=== PATIENT | female | born 1960 | race Caucasian/White ===

== ENCOUNTER → 2016-03-22 | Outpatient (CLI) | payer BC ==
[~2016-03-22] MED LIST: MULTIPLE VITAMI1 TA3 PO; SIMVASTATIN10 MG PO; VITAMIN D-32000 UNI1 PO
--- NOTE | ~2016-03-22 | ST ---
[place], [place] EXERCISE STRESS TEST REPORT NAME: DIANE DUKES [facility] #: [id number] UNIT #: [id number] ROOM: DOCTOR: DEN GAMA,ABRAHAN BIRTHDATE: [birth year] DOS: 03/22/2016 REFERRING PHYSICIAN: Dr. Cely Jain. REASON FOR TEST: Evaluation of chest pain. PHYSICAL EXAMINATION NECK: Supple. LUNGS: Clear anteriorly. HEART: Regular rhythm. PROTOCOL: Izaiah protocol. Total stress time 6 minutes. Maximum heart rate of 153, which is 93% of targeted heart rate. Total mets 7.2 mets. Peak blood pressure 176/50, adequate response. SYMPTOMS: The patient is chest pain free. EKG: Resting EKG showed sinus rhythm. Stress EKG showed no ischemia, no arrhythmias. POST-STRESS COMPLICATIONS: None. ABRAHAN CRENSHAW MD CM:STRESS:EXERCISE STRESS TEST REPORT [id number] ABRAHAN CRENSHAW MD
== END | disposition home or self-care (01) ==
LOC: CARD 03-15 10:30
DX: R07.2 Precordial pain (principal)

== ENCOUNTER 2016-12-30 14:58 | Emergency (ER) | payer OTHER ==
[~2016-12-30] VITALS: Ht 167.6 cm; Wt 90.7 kg
== END 2016-12-30 16:34 | disposition home or self-care (01) ==
LOC: ED 14:58
DX: S80.02XA Contusion of left knee, initial encounter (principal); S80.12XA Contusion of left lower leg, initial encounter; Z79.899 Other long term (current) drug therapy; W01.0XXA Fall on same level from slipping, tripping and stumbling without subsequent striking against object, initial encounter; Y93.89 Activity, other specified; Y92.89 Other specified places as the place of occurrence of the external cause; Y99.9 Unspecified external cause status

== ENCOUNTER → 2018-02-21 | Outpatient (CLI) | payer BC | END | disposition home or self-care (01) | LOC: CARD 07:28 | DX: I34.0 Nonrheumatic mitral (valve) insufficiency (principal); R01.1 Cardiac murmur, unspecified ==

== ENCOUNTER → 2020-09-08 | Outpatient (CLI) | payer BC | END | disposition home or self-care (01) | LOC: CARD 09-01 15:00 | PROVIDERS: ATTEND Physician Assistant | DX: I34.0 Nonrheumatic mitral (valve) insufficiency (principal); I10 Essential (primary) hypertension; E78.2 Mixed hyperlipidemia ==

== ENCOUNTER 2022-06-09 09:39 | Emergency (ER) | payer OTHER ==
[~2022-06-09] VITALS: Wt 95.3 kg
== END 2022-06-09 10:02 | disposition home or self-care (01) ==
LOC: ED 09:39
DX: S80.11XA Contusion of right lower leg, initial encounter (principal); E78.00 Pure hypercholesterolemia, unspecified; Z98.890 Other specified postprocedural states; W22.8XXA Striking against or struck by other objects, initial encounter; Y93.89 Activity, other specified; Y92.89 Other specified places as the place of occurrence of the external cause; Y99.8 Other external cause status

== ENCOUNTER → 2024-10-16 | Outpatient (CLI) | payer MEDICARE ==
[~2024-10-16] MED LIST changes: +AMIODARONE HCL400 MG PO; +AMIODARONE HYD200 MG PO; +ATENOLOL25 MG PO; +DILTIAZEM HCL120 M2 PO; +LASIX40 MG PO; +LOPRESSOR25 MG PO; +POTASSIUM CHLO10 ME4 PO; +TRAMADOL HCL50 MG PO; +XARE20MG PO
== END | disposition home or self-care (01) ==
LOC: RAD 01:22
PROVIDERS: ATTEND Internal Medicine
DX: J90 Pleural effusion, not elsewhere classified (principal); R00.2 Palpitations